=== PATIENT | female | born 1950 ===

== ENCOUNTER 2017-08-03 14:58 | Emergency (ER) | payer OTHER ==
--- NOTE | 2017-08-03 17:08 | C.PDOC ---
History Of Present Illness 67 y/o female presents to ED with complaints of elevated blood pressure since earlier today. Patient reports she is compliant with medication and denies fever , chills, nausea, vomiting or any other complaints at this time. Time Seen by Provider: 08/03/17 16:20 Chief Complaint (Nursing): Abdominal Pain History Per: Patient History/Exam Limitations: no limitations Onset/Duration Of Symptoms: Hrs Current Symptoms Are (Timing): Still Present Past Medical History Reviewed: Historical Data, Nursing Documentation, Vital Signs Vital Signs: Last Vital Signs Temp 97.6 F 08/03/17 15:15 Pulse 81 08/03/17 15:15 Resp 18 08/03/17 15:15 BP 185/79 H 08/03/17 15:15 Pulse Ox 98 08/03/17 17:19 - Medical History PMH: HTN Surgical History: No Surg Hx Family History: States: No Known Family Hx - Social History Hx Alcohol Use: No Hx Substance Use: No - Immunization History Hx Tetanus Toxoid Vaccination: No Hx Influenza Vaccination: No Hx Pneumococcal Vaccination: No Review Of Systems Constitutional: Negative for: Fever, Chills Cardiovascular: Negative for: Chest Pain Respiratory: Negative for: Shortness of Breath Gastrointestinal: Negative for: Nausea, Vomiting Skin: Negative for: Rash Physical Exam - Physical Exam Appears: Non-toxic, No Acute Distress Skin: Normal Color, Warm, Dry, No Rash Head: Atraumatic, Normacephalic Eye(s): bilateral: Normal Inspection Oral Mucosa: Moist Neck: Normal ROM, Supple Chest: Symmetrical Cardiovascular: Rhythm Regular Respiratory: Normal Breath Sounds, No Rales, No Rhonchi, No Wheezing Gastrointestinal/Abdominal: Soft, No Tenderness, No Guarding, No Rebound Neurological/Psych: Oriented x3 ED Course And Treatment O2 Sat by Pulse Oximetry: 98 (RA) Pulse Ox Interpretation: Normal Progress Note: 1645: Hydralazine 10 mg PO and amlodipine 10 mg PO from pt's own medications bottles. Reevaluation Time: 17:38 Reassessment Condition: Improved (feels much better) Medical Decision Making Medical Decision Making: poorly controlled BP w polypharmacy: Presently prescribed: Hydralazine 50 mg PO TID----> BID 8AM and 4PM and 8PM Metoprolol 50 mg PO BID ----> BID 8AM and 4PM Losartan 50 mg PO Daily ----> Daily 8AM Amlodipine 10 mg PO Daily ---> Daily 8AM Disposition Doctor Will See Patient In The: Office Counseled Patient/Family Regarding: Studies Performed, Diagnosis - Disposition Referrals: Delonte Richey MD [Medical Doctor] - Disposition: HOME/ ROUTINE Disposition Time: 17:18 Condition: GOOD Additional Instructions: Sigue hong medicamentos marcel escritos: Para Hipertension: Hydralazine 50 mg PO TID----> BID 8AM and 4PM and 8PM Metoprolol 50 mg PO BID ----> BID 8AM and 4PM Losartan 50 mg PO Daily ----> Daily 8AM Amlodipine 10 mg PO Daily ---> Daily 8AM Atorvastatin 20 mg (para cholesterol) Viviane en la noche antes de acostar Zolpidem 5 mg (para dormir) Viviane en la noche antes de acostar Daily = katty vez al silke BID = DOS veces al silke TID = TRENT veces al silke Regressa con Dr. Simon en 2 semanas para ajustar hong medicamentos El Losartan puede ser aumentado de 50 mg a 100 mg diario (en la manana) Instructions: Hypertension (ED) Forms: [employer] (Pakistani) Print Language: SLOVENIAN - Clinical Impression Clinical Impression: Hypertension - Scribe Statement The provider has reviewed the documentation as recorded by the Scribkatie Zuniga All medical record entries made by the Scribe were at my direction and personally dictated by me. I have reviewed the chart and agree that the record accurately reflects my personal performance of the history, physical exam, medical decision making, and the department course for this patient. I have also personally directed, reviewed, and agree with the discharge instructions and disposition.
[2017-08-03 17:41] VITALS: BP 175/78; PULSE 82; RESP 16; TEMP 97.7; O2SAT 97
== END 2017-08-03 17:41 | disposition home or self-care (01) ==
LOC: C.ER 14:58
DX: I10 Essential (primary) hypertension (principal)